=== PATIENT | male | born 1960 | race African-American/Black ===

== ENCOUNTER 2017-10-29 14:02 | Emergency (ER) | payer OTHER ==
[~2017-10-29] VITALS: Ht 182.9 cm; Wt 64.0 kg
[~2017-10-29 14:02] MED LIST: DOCU50CA3; OMEP20CA10; SULF-165
[2017-10-29] MEDS ORDERED: AMLO5TAB88 PO (14:21)
[2017-10-29] MEDS ORDERED: TEMA15CA PO (14:21)
[2017-10-29] MEDS ORDERED: SODIUM CHLORIDE 0.9% 1,000 ML IV ONE (15:35)
[2017-10-29 16:46] LABS: BASOPHILS % 0.3 % (0.0-2.0); EOSINOPHILS % 0.4 % (0.0-5.0); HEMATOCRIT. 42.6 % (42.0-52.0); HEMOGLOBIN. 13.8 g/dL (14.0-18.0); LYMPHOCYTES % 35.5 % (20.0-50.0); MEAN CORPUSCULAR HEMOGLOBIN 22.7 pg (28.0-32.0); MEAN CORPUSCULAR VOLUME 69.9 fL (80.0-94.0); MEAN PLATELET VOLUME 6.2 fl (7.4-10.4); MONOCYTES % 8.1 % (2.0-8.0); NEUTROPHILS % 55.7 % (40.0-76.0); PLATELET 176 x1000/uL (130-400); RED CELL DISTRIBUTION WIDTH 14.7 % (11.6-14.6)
[2017-10-29 16:50] LABS: CHLORIDE 103 mEq/L (98-107)
[2017-10-29 16:51] LABS: INR 1.1
[2017-10-29 16:56] LABS: CLARITY URINE CLEAR (CLEAR); COLOR URINE YELLOW (YELLOW); KETONES URINE NEGATIVE (NEGATIVE); LEUKOCYTE ESTERASE URINE NEGATIVE (NEGATIVE); NITRITE URINE NEGATIVE (NEGATIVE); OCCULT BLOOD URINE NEGATIVE (NEGATIVE); PROTEIN URINE NEGATIVE (NEGATIVE); SPECIFIC GRAVITY URINE 1.014 (1.005-1.030)
[2017-10-29 17:41] LABS: PLATELET ESTIMATE NORMAL
[2017-10-29 19:55] VITALS: BP 143/76
[2017-10-29] MEDS ORDERED: IOHEXOL-300 100 ML BOTTLE ONE (19:56)
== END 2017-10-29 20:10 | disposition home or self-care (01) ==
LOC: ER 14:20
DX: I10 Essential (primary) hypertension (principal); R63.4 Abnormal weight loss; G47.00 Insomnia, unspecified; Z98.890 Other specified postprocedural states; Z88.0 Allergy status to penicillin
CPT/HCPCS: 36415; 71045; 74177; 80053; 81003; 83880; 84484; 85025; 85610; 93005; 99285; J7030; Q9967; Z7610

== ENCOUNTER 2017-12-01 15:15 | Inpatient (IN) | payer MEDICAID ==
[~2017-12-01] VITALS: Ht 182.9 cm; Wt 55.8 kg
[~2017-12-01 15:15] MED LIST changes: +AMLO5TAB88 PO; -DOCU50CA3; +DOCU50CA3 PO; -OMEP20CA10; -SULF-165; +TEMA15CA PO
[2017-12-01 16:23] LABS: CHLORIDE 102 mEq/L (98-107)
[2017-12-01 16:24] LABS: BASOPHILS % 0.4 % (0.0-2.0); EOSINOPHILS % 0.2 % (0.0-5.0); HEMATOCRIT. 42.3 % (42.0-52.0); HEMOGLOBIN. 13.8 g/dL (14.0-18.0); LYMPHOCYTES % 34.6 % (20.0-50.0); MEAN CORPUSCULAR VOLUME 70.6 fL (80.0-94.0); MEAN PLATELET VOLUME 6.3 fl (7.4-10.4); MONOCYTES % 9.3 % (2.0-8.0); NEUTROPHILS % 55.5 % (40.0-76.0); PLATELET 170 x1000/uL (130-400)
[2017-12-01 16:32] LABS: CLARITY URINE CLEAR (CLEAR); COLOR URINE YELLOW (YELLOW); KETONES URINE NEGATIVE (NEGATIVE); LEUKOCYTE ESTERASE URINE NEGATIVE (NEGATIVE); NITRITE URINE NEGATIVE (NEGATIVE); OCCULT BLOOD URINE NEGATIVE (NEGATIVE); PH URINE 7.5 (4.5-8.0); PROTEIN URINE NEGATIVE (NEGATIVE); SPECIFIC GRAVITY URINE 1.005 (1.005-1.030); UROBILINOGEN URINE 0.2 E.U./dL (0.2-1.0)
[2017-12-01 17:05] LABS: *BARBITURATES SCREEN URINE NEGATIVE (NEGATIVE)
[2017-12-01 17:06] LABS: *AMPHETAMINES SCREEN URINE NEGATIVE (NEGATIVE); *BENZODIAZEPINES SCREEN URINE NEGATIVE (NEGATIVE); *COCAINE SCREEN URINE NEGATIVE (NEGATIVE); METHADONE URINE SCREEN NEGATIVE (NEGATIVE)
[2017-12-01 17:07] LABS: CANNABINOID URINE SCREEN NEGATIVE (NEGATIVE); OPIATES URINE SCREEN NEGATIVE (NEGATIVE); PHENCYCLIDINE URINE SCREEN NEGATIVE (NEGATIVE)
[2017-12-01 21:50] VITALS: BP 151/79
[2017-12-01 23:00] VITALS: BP 151/79
[2017-12-01] MEDS ORDERED: MELA10CA PO (23:15)
[2017-12-01] MEDS ORDERED: MORPHINE SULFATE 4 MG/ML CPJ (NOT FOR IM USE) IV PRN (23:45)
[2017-12-01] MEDS ORDERED: LORAZEPAM 1MG TABLET PO PRN (23:45)
[2017-12-02] VITALS: BP 127/78
[2017-12-02] MEDS ORDERED: DOCUSATE SODIUM 500 MG PO SCH
[2017-12-02] MEDS ORDERED: MORPHINE SULFATE 4 MG/ML CPJ (NOT FOR IM USE) IV PRN (00:30)
[2017-12-02 04:00] VITALS: BP 100/62
[2017-12-02 08:00] VITALS: BP 103/70
[2017-12-02] MEDS ORDERED: MEDICATION NOT ON FORMULARY EA (Amlodipine Besylate 5 MG) PO SCH (09:00)
[2017-12-02] MEDS: AMLODIPINE 5MG TABLET PO SCH (10:09)
[2017-12-02] MEDS: DOCUSATE SODIUM 250MG CAPSULE PO SCH ×2 (10:10→17:41)
[2017-12-02] MEDS ORDERED: LORAZEPAM 1MG TABLET PO PRN (11:00)
[2017-12-02] MEDS ORDERED: LACTULOSE 20G/30ML UDC PO NR (11:00)
[2017-12-02 12:00] VITALS: BP 115/75
[2017-12-02 16:00] VITALS: BP 113/72
[2017-12-02] MEDS ORDERED: SORBITOL 70% SOLN 30ML PO NR (17:49)
[2017-12-02 20:00] VITALS: BP 107/70
[2017-12-02] MEDS: NA PHOS,M-B/NA PHOS,DI-BA ENEMA 118ML PR PRN (21:49)
[2017-12-03] VITALS: BP 135/73
[2017-12-03 04:00] VITALS: BP 105/67
[2017-12-03 06:13] LABS: HIV SCREEN 4G Non Reactive (Non Reactive)
[2017-12-03 07:16] LABS: HEMATOCRIT 38.5 % (42.0-52.0); HEMOGLOBIN 12.5 g/dL (14.0-18.0); MEAN CORPUSCULAR HEMOGLOBIN 22.7 pg (28.0-32.0); PLATELET 144 x1000/uL (130-400); RED CELL DISTRIBUTION WIDTH 15.1 % (11.6-14.6)
[2017-12-03 08:00] VITALS: BP 112/60
[2017-12-03 08:09] LABS: CHLORIDE 103 mEq/L (98-107)
[2017-12-03] MEDS: AMLODIPINE 5MG TABLET PO SCH (09:11)
[2017-12-03] MEDS: DOCUSATE SODIUM 250MG CAPSULE PO SCH ×2 (09:11→17:21)
[2017-12-03 12:00] VITALS: BP 111/69
[2017-12-03] MEDS: NA PHOS,M-B/NA PHOS,DI-BA ENEMA 118ML PR PRN (13:57)
[2017-12-03] MEDS ORDERED: LACTULOSE 20G/30ML UDC PO SCH (14:00)
[2017-12-03 16:00] VITALS: BP 105/63
[2017-12-03 16:30] VITALS: BP 111/69
== END 2017-12-03 19:30 | disposition home or self-care (01) | DRG 254 ==
LOC: ER 15:15 → EDBEDREQ 18:27 → ENRESERV 20:52 → 5WST 21:48
PROVIDERS: ADMIT Internal Medicine; ATTEND Internal Medicine
DX: K59.00 Constipation, unspecified (principal); G47.00 Insomnia, unspecified; T42.4X5A Adverse effect of benzodiazepines, initial encounter; R63.4 Abnormal weight loss; I10 Essential (primary) hypertension; N20.0 Calculus of kidney; N40.1 Benign prostatic hyperplasia with lower urinary tract symptoms; Y92.89 Other specified places as the place of occurrence of the external cause; Z88.0 Allergy status to penicillin; Z79.899 Other long term (current) drug therapy
CPT/HCPCS: 36415; 71045; 74176; 80048; 80053; 80305; 81003; 83036; 83735; 83880; 84443; 84484; 85025; 85027; 87040; 87086; 87389; 93005; 99285